=== PATIENT | male | born 1995 | race African-American/Black ===

== ENCOUNTER 2025-02-04 08:25 | Outpatient (AMB) | payer OTHER, SELFPAY ==
--- NOTE | 2025-02-04 08:34 | A.OFFPC_ITS ---
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 Intake Note: patient here for new patient visit Button Inspector Required: No Allergies No Known Allergies Allergy (Verified 02/04/25 09:07) Medication List - Last Reconciled 02/04/25 by Gilma Mock CNP albuterol sulfate 90 mcg/actuation 2 puffs inhalation Q4-6H PRN Tobacco use date assessed: 02/04/25 Dental Screening Dental Screen Date: 02/04/25 Did you have a dental visit in the last 12 months?: Yes Did you have a dental problem in the last 6 months where you did not have access to dental care?: No Was dental information given to patient?: Patient has dentist HPI HPI Comments History of Present Illness Details 29-year-old male presents to establish c are. Prior PCP? - [facility] in [facility] Last office visit/CPE/labs - About a year and half ago Acute issue(s) - Asthma; diagnosed during covid-19 prev alence. Unsure if he had covid. Uses albuterol inhaler - Reports difficulty difficulty falling asleep but able to maintain sleep; he wakes up restless. His notes he snores heavily; he has never had a sleep study or diagnosed with sleep apnea Past Medical History - Asthma, eczema, myopia, astigmatism tristan th eyes Surgical History - [place] teeth extraction Family History - Dad: Alcohol abuse, substance abuse - Mom: Substance abuse Social History - Nonsmoker. Does not vape. Does not dri nk alcohol. Denies recreational drug use - Has been making healthy dietary choice s. Exercises routinely. Reports difficulty difficulty falling asleep but able to maintain sleep; he wakes up restless. His notes he snores heavily; he has never had a sleep study or diagnosed with sleep apnea Health maintenance - Last eye exam was in 08/2024 at [facility] - Last dental visit was in 08/2024 - Unsure of last tetanus vaccine. He noy l review his immunization record and inform his PCP; will update as needed - He notes that he is up-to-date on the flu vaccine 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 1. Little interest or pleasure in doing things: not at all 2. Feeling down, depressed, or hopeless: several days 3. Trouble falling or staying asleep, or sleeping too much: several days 4. Feeling tired or having little energy: several days 5. Poor appetite or overeating: not at all 6. Feeling bad about yourself - or that you are a failure or have let yourself or your family down: not at all 7. Trouble concentrating on things, such as reading the newspaper or watching television: not at all 8. Moving or speaking so slowly that other people could have noticed. Or the opposite - being so fidgety or restless that you have been moving around a lot more than usual: not at all 9. Thoughts that you would be better off or of hurting yourself in some way: not at all Total score: 3 Depression Screening Interpretation: Negative Depression Screening Done: Yes 80827 - PHQ-9 Billing: Yes Source: Developed by Drs. Vivek Mccall, Smiley Steinberg, Loc Livingston and colleagues, with an educational dillon from [employer]. Thrive Questionnaire Date Thrive assessed: 02/04/25 I am a: Patient What is your living situation today?: I have a steady place to live Within the past 12 months, did the food you bought not last and you didn't have the money to get more?: Often true Within the past 12 months, did you worry whether your food would run out before you got money to buy more?: Never true Do you have trouble paying for medicines?: No Do you have trouble getting transportation to medical appointments?: No Do you have trouble paying your heating and electricity bill?: No Do you have trouble taking care of your child, family member or friend?: No Do you have trouble with day-to-day activities such as bathing, preparing meals, shopping, managing finances, etc.?: No Are you currently unemployed and looking for a job?: No Are you interested in more education?: Yes Please select the resources that you would like help with: None Currently or been in a relationship where the following occur: I choose not to answer THRIVE Score: 1 AUDIT C Alcohol Use Questionnaire (AUDIT-C) 2. How many drinks containing alcohol do you have on a typical day when you are drinking?: 1 or 2 3. How often do you have six or more drinks on one occasion?: Never Total Score: 0 Score Reviewed/Action Taken: Yes CASSIE-7 AMB Questionnaire CASSIE-7 Date CASSIE - 7 assessed: 02/04/25 Feeling nervous, anxious, or on edge: 1 = Several days Not being able to stop or control worryin = Not at all Worrying too much about different things: 0 = Not at all Trouble relaxin = Several days Being so restless that it is hard to sit still: 0 = Not at all Becoming easily annoyed or irritable: 0 = Not at all Feeling afraid as if something awful might happen: 0 = Not at all Total CASSIE-7 score (0-4 normal; 5-9 mild; 10-14 moderate; 15-21 severe): 2 Source: Developed by Drs. Vivek Mccall, Smiley Steinberg, Loc Livingston and colleagues, with an educational dillon from [employer]. CASSIE-7 Assessment Billing CASSIE-7 Assessment Tool: CASSIE-7 Assessment 56516 ACT Questionnaire In the past 4 weeks, how much of the time did your asthma keep you from getting as much done at work, school or at home?: None of the time During the past 4 weeks, how often have you had shortness of breath?: 1-2 times a week During the past 4 weeks, how often did your asthma symptoms wake you up at night or earlier than usual in the morning?: Once or twice per week During the past 4 weeks, how often have you had to use your rescue inhaler or nebulizer medication?: 1-2 times a week How would you rate your asthma control during the past 4 weeks?: Completely controlled ACT Interpretation: Negative Score: 20 Review of Systems Const Details: Denies chills, Denies fatigue, Denies fever(s), Denies headache(s) and Denies weakness HEENT Denies change in vision, Denies dizziness, Denies headache(s), Denies hearing loss, Denies nasal congestion, Denies sinus pain, Denies sinus pressure and Denies sore throat Card Denies chest pain, Denies lightheadedness, Denies dyspnea and Denies other (palpitations) Resp Denies cough, Denies dyspnea and Denies wheezing GI Denies abdominal pain, Denies melena, Denies hematochezia, Denies change in bowel habits, Denies dyspepsia and Denies nausea Denies hematuria and Denies dysuria Musc Denies abnormal gait, Denies myalgias, Denies arthralgias, Denies numbness and Denies tingling Skin/Breast Denies rash, Denies unusual bruising and Denies wounds Neuro Denies abnormal gait, Denies dizziness, Denies headache(s), Denies memory loss, Denies numbness, Denies Sensory deficit (Neuro), Denies tingling and Denies weakness Psych Denies anxiety, Denies depression and Denies memory loss Endo Denies cold intolerance, Denies fatigue, Denies heat intolerance, Denies polydipsia and Denies polyuria Joon/Lymph Denies easy bleeding and Denies easy bruising Aller/Immun Denies wheezing Physical exam (Primary Care) Vital Signs: Last Vital Signs Temp 97.5 F 02/04/25 08:55 Pulse 61 02/04/25 08:55 Resp 16 02/04/25 08:55 BP 134/79 02/04/25 08:55 Pulse Ox 98 02/04/25 08:55 Oxygen Delivery Method Room Air 02/04/25 08:55 BMI result Body Mass Index 42.5 Tobacco/Smoking Status: Tobacco use Status Tobacco use date assessed 02/04/25 02/04/25 08:42 Patient Tobacco Use Status Never used Tobacco 02/04/25 08:58 e-Cigarette/Vaping Use Never Used 02/04/25 08:58 PHQ-9: PHQ-9 Score PHQ-9: Total score 3 02/04/25 09:20 Depression Screening Interpretation: Negative Thrive Assessment: Date of Thrive Assessment Date Thrive assessed 02/04/25 02/04/25 08:36 Currently or been in a relationship where the following occur: I choose not to answer Const Other: General: no acute distress, well developed, alert and awake Nutritional Appearance: well nourished Orientation/consciousness: patient oriented x3 [facility] Head: Yes normocephalic and Yes atraumatic Ears: hearing grossly normal bilaterally and TM's normal bilaterally General nose exam: Normal external nose present and Normal nares present Mouth: Normal oral and palatal mucosa present and moist mucous membranes Teeth and gingiva: dentition normal Throat: Yes oropharynx normal Eyes Pupils: Equal, round and reactive pupils present and Pupil accommodation reflex normal EOM: EOMs intact bilaterally Neck Neck: Yes normal visual inspection, Yes no lymphadenopathy and Yes trachea midline Thyroid: Thyroid normal Carotids: no bruits Lymphatic: no lymphadenopathy noted Chest Chest palpation & inspection: normal inspection of the chest Resp Effort & Inspection: normal respiratory effort Auscultation: clear to auscultation bilaterally Cardio Rate: regular rate Rhythm: regular rhythm Heart sounds: S1 normal heart sound present, S2 normal heart sound present, no gallops, no murmurs and no rubs Bruits: no abdominal aortic bruits and no carotid bruits GI Palpation (GI): No Abdominal aortic bruit present, Soft to palpation, nontender, No hepatosplenomegaly present and No Rebound tenderness present Auscultation: normal bowel sounds General: Yes no CVA tenderness Back/Spine/Pelvis Back: no CVA tenderness Cervical Spine: cervical ROM normal and No Cervical spine tenderness Thoracic/Lumbar Spine: thoraco-lumbar ROM normal, No pain with thoraco-lumbar ROM, No thoracic spinal tenderness and No lumbar spinal tenderness Skin General: warm and dry. Normal skin color. Normal skin turgor Lesions: no lesions Rashes: no rashes Trauma: no lacerations or abrasions Wounds: no wounds Nails: normal Neuro General: patient oriented x3, gait normal and CN's II-XI intact bilaterally Cranial nerves: Yes Equal, round and reactive pupils present Cognition (Neuro): normal cognition Gait exam (Neuro): Normal gait present Motor exam (neuro): 5/5 motor strength present throughout Sensory Exam: No Sensory deficit (Neuro) Deep tendon reflexes (DTR's): Right patellar reflex intensity grade: 2+ and Left patellar reflex intensity grade: 2+ Extrem General: Yes normal to inspection, No edema and No calf tenderness Psych Appearance: grossly normal Affect: normal affect Attitude: cooperative Thought process: Normal thought process present Coding Level of Care Code New Pt Level 3 (49585) New Pt Prev Care 18-39yr(30536 Diagnoses Normal physical examination, routine Z00.00 Asthma J45.909 Sleep disturbance G47.9 Snoring R06.83 Laboratory tests ordered as part of a complete physical exam (CPE) Z00.00 Additional Codes CASSIE-7 Assessment Billing - CASSIE-7 Assessment Tool: CASSIE-7 Assessment 71910 ([id number]) PHQ-9 - 97394 - PHQ-9 Billing: Yes ([id number]) Asthma Control Questionnaire - ACT Interpretation: Negative ([id number]) Assessment & Plan Assessment & Plan (1) Normal physical examination, routine: Code(s): Z00.00 - Encounter for general adult medical examination without abnormal findings Category: Medical Plan: No significant functional limitation noted. Healthy diet and routine exercise encouraged. Raised perform lab work and follow-up in 2-3 weeks for telehealth visit for labs review. Return sooner with symptoms or concerns. Verbalized understanding and agreed with treatment plan. (2) Asthma: Code(s): J45.909 - Unspecified asthma, uncomplicated Category: Medical Plan: ACT score is 20, well controlled asthma. Albuterol inhaler refilled advised to use as prescribed. Follow-up with symptoms or concerns. Verbalized understanding and agreed with the treatment plan. (3) Sleep disturbance: Code(s): G47.9 - Sleep disorder, unspecified Category: Medical Plan: He has difficulty difficulty falling asleep but able to maintain sleep; he wakes up restless. His notes he snores heavily; he has never had a sleep study or diagnosed with sleep apnea. Instructed on sleep hygiene. Referred to [facility] for sleep study. (4) Snoring: Code(s): R06.83 - Snoring Category: Medical Plan: Plan as above. (5) Laboratory tests ordered as part of a complete physical exam (CPE): Code(s): Z00.00 - Encounter for general adult medical examination without abnormal findings Category: Medical Plan: Fasting labs ordered as part of a complete physical exam. Advised to fast for at least 10 hours before getting labs drawn. May drink water Verbalized understanding and agreed with treatment plan. Orders: Orders Comprehensive [place]. Panel Fast Today Z00.00 - Encounter for general adult medical examination without abnormal findings Lipid Panel Today Z00.00 - Encounter for general adult medical examination without abnormal findings TSH reflex Free T4 Today Z00.00 - Encounter for general adult medical examination without abnormal findings Vitamin D 25-OH Total Today Z00.00 - Encounter for general adult medical examination without abnormal findings Complete Blood Count Auto Diff Today Z00.00 - Encounter for general adult medical examination without abnormal findings Microalbumin, Random (w Creat) Today Z00.00 - Encounter for general adult medical examination without abnormal findings UA CC w/rflx Micro + Cult Today Z00.00 - Encounter for general adult medical examination without abnormal findings Referrals Sleep Medicine Referral G47.9 - Sleep disorder, unspecified, R06.83 - Snoring Medications: New albuterol sulfate 90 mcg/actuation 2 puffs inhalation Q4-6H PRN 8.5 grams 4RF shortness of breath or wheezing
[2025-02-04 08:55] VITALS: BP 134/79; PULSE 61; RESP 16; TEMP 36.4; O2SAT 98; BMI 42.5
== END 2025-02-04 09:27 | disposition home or self-care (01) ==
LOC: HO.HMCFM 08:26
PROVIDERS: PCP Nurse Practitioner Family; Visit Provider Nurse Practitioner Family
DX: Z00.00 Encounter for general adult medical examination without abnormal findings (principal); J45.909 Unspecified asthma, uncomplicated; G47.9 Sleep disorder, unspecified; R06.83 Snoring

== ENCOUNTER → 2025-02-04 08:25 | Outpatient (BNVA) | payer OTHER, SELFPAY | PROVIDERS: PCP Nurse Practitioner Family; Visit Provider Nurse Practitioner Family | DX: Z00.01 Encounter for general adult medical examination with abnormal findings (principal); J45.909 Unspecified asthma, uncomplicated; G47.9 Sleep disorder, unspecified; R06.83 Snoring | CPT/HCPCS: 96127; 96160; 99202 ==

== ENCOUNTER 2025-02-21 11:53 | Outpatient (REF) | payer OTHER, SELFPAY ==
[2025-02-21 13:51] LABS: MANUAL DIFF FLAG NO
[2025-02-21 13:53] LABS: Basophils Percent Auto 0.7 % (0-2); Eosinophils Percent Auto 0.7 % (0-4); Hematocrit 45.4 % (42.0-52.0); Hemoglobin 15.9 g/dl (14.0-18.0); Imm Gran Abs Auto 0.01 X10*3/uL (0.00-0.03); Imm Gran Pct Auto 0.2 % (0.0-0.4); Lymphocytes Absolute Auto 1.7 X10*3/uL (1.2-4.9); Lymphocytes Percent Auto 35.9 % (20-40); Mean Corpuscular Hemoglobin 31.1 pg (27.0-33.0); Mean Corpuscular Volume 88.7 fL (80.0-98.0); Mean Platelet Volume 11.4 fL (9.4-12.4); Monocytes Absolute Auto 0.3 X10*3/uL (0.1-1.2); Monocytes Percent Auto 7.2 % (2-11); Neutrophils Absolute Auto 2.5 x10*3/uL (2.0-8.3); Neutrophils Percent Auto 55.3 % (45-73); Platelet Count 188 X10*3/uL (160-400); Red Blood Count 5.12 X10*6/uL (4.60-5.80); Red Cell Distribution Width 11.8 % (11.0-16.0); White Blood Count 4.6 X10*3/uL (4.8-10.8)
[2025-02-21 14:24] LABS: Alanine Aminotransferase 37 U/L (0-40); Albumin Level 4.4 g/dL (3.5-5.0); Alkaline Phosphatase 46 U/L (39-117); Anion Gap 11 (12-20); Aspartate Amino Transferase 28 U/L (5-37); Bilirubin Total 0.5 mg/dL (0.0-1.0); Blood Urea Nitrogen 18 mg/dL (9-16); Carbon Dioxide 25 mmol/L (22-29); Chloride 105 mmol/L (96-108); Cholesterol 183 mg/dL (<200); Estimated Glomerular Filt Rate > 60; Glucose Fasting 110 mg/dL (60-99); HDL Cholesterol 53 mg/dL (>40); LDL Cholesterol Calculated 116 mg/dL (<100); Potassium 3.8 mmol/L (3.3-5.1); Sodium 137 mmol/L (135-145); Total Protein 7.9 g/dL (6.5-8.0); Triglycerides 72 mg/dL (<150)
[2025-02-21 14:30] LABS: TSH reflex Free T4 0.99 uIU/mL (0.32-4.0); Vitamin D 25-OH Total 38.4 ng/mL (>30)
== END 2025-02-21 11:54 | disposition home or self-care (01) ==
LOC: HO.HMGCLDS 11:53
PROVIDERS: PCP Nurse Practitioner Family; Visit Provider Nurse Practitioner Family
DX: Z00.00 Encounter for general adult medical examination without abnormal findings (principal); Z13.220 Encounter for screening for lipoid disorders; Z13.29 Encounter for screening for other suspected endocrine disorder; Z13.228 Encounter for screening for other metabolic disorders
CPT/HCPCS: 36415; 80053; 80061; 82306; 84443; 85025

== ENCOUNTER 2025-02-21 18:35 | Outpatient (REF) | payer OTHER, SELFPAY ==
[2025-02-22 10:24] LABS: Appearance Urine Clear; Color Urine Yellow; Glucose Urine UA Negative (Negative); Leukocyte Esterase Urine Negative (Negative); Nitrite Urine Negative (Negative); PH 5.5 (5.0-9.0); Specific Gravity - Urine 1.015 (1.005-1.025); Urine Blood Negative (Negative); Urine Ketones Negative (Negative); Urine Protein Negative (Neg-Trace)
[2025-02-22 11:26] LABS: Microalbum/Creatinine Ratio Ur 6.7 ug/mg cr (<30)
== END 2025-02-21 18:36 | disposition home or self-care (01) ==
LOC: HO.HMGCLNP 18:35
PROVIDERS: PCP Nurse Practitioner Family; Visit Provider Nurse Practitioner Family
DX: Z00.00 Encounter for general adult medical examination without abnormal findings (principal); Z13.9 Encounter for screening, unspecified
CPT/HCPCS: 81003; 82043; 82570

== ENCOUNTER 2025-02-22 14:03 | Outpatient (AMB) | payer OTHER, SELFPAY ==
--- NOTE | 2025-02-22 13:57 | MHC.PC.OV ---
Intake Visit Reasons: Telehealth 2-3 labs review Intake Note: patient here for follow up telehealth for lab review [place] Clerk Required: No Allergies No Known Allergies Allergy (Verified 02/22/25 13:57) Tobacco use date assessed: 02/22/25 Dental Screening Dental Screen Date: 02/22/25 Did you have a dental visit in the last 12 months?: Yes Did you have a dental problem in the last 6 months where you did not have access to dental care?: No Was dental information given to patient?: Patient has dentist HPI HPI Comments History of Present Illness Details 29-year-old male presents for telehealth visit for review of recent lab results. He offers no complaints and denies acute symptoms at this time. 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 Vivek Mccall, Smiley Steinberg, Loc Livingston and colleagues, with an educational dillon from [employer]. Review of Systems Const Details: Denies chills, Denies fatigue, Denies fever(s), Denies headache(s) and Denies weakness Cardiac Denies chest pain, Denies claudication, Denies leg edema, Denies lightheadedness, Denies palpitations, Denies dyspnea, Denies dyspnea on exertion, Denies orthopnea and Denies other (Loss of consciousness) Resp Denies cough, Denies excessive phlegm production, Denies dyspnea, Denies dyspnea on exertion, Denies snoring and Denies wheezing Physical exam (Primary Care) Tobacco/Smoking Status: Tobacco use Status Tobacco use date assessed 02/22/25 02/22/25 13:59 Patient Tobacco Use Status Never used Tobacco 02/22/25 13:59 e-Cigarette/Vaping Use Never Used 02/22/25 13:59 Thrive Assessment: Date of Thrive Assessment Date Thrive assessed 02/04/25 02/22/25 13:59 Const Other: She is alert and oriented x3. Telehealth Telehealth Telehealth Platform: Telephone Location of provider rendering services: practice address Location of patient: address on file Patient Identification confirmed using: Name, : Yes Telehealth method: voice only Patient verbally consented to treatment: Yes Patient verbally consented to billing insurance company: Yes Patient informed of any privacy concerns related to visit: Yes Coding Level of Care Code Tele Est Pt Level 3 (54909) Diagnoses Leukopenia D72.819 Elevated LDL cholesterol level E78.00 Time Spent (min) 10 Assessment & Plan Assessment & Plan (1) Leukopenia: Code(s): D72.819 - Decreased white blood cell count, unspecified Category: Medical Plan: Recent WBC slightly low, 4.6; equivocal. Will check vitamin B12 and folate levels. (2) Elevated LDL cholesterol level: Code(s): E78.00 - Pure hypercholesterolemia, unspecified Category: Medical Plan: Recent LDL is slightly elevated, 116. Advised to limit foods high in saturated fat and avoid foods high in trans fat. Routine exercise encouraged. Advised to fast for 10-12 hours, may drink water, and perform lipid panel blood work 2-3 days before next visit. Follow-up for telehealth visit in 3 months or sooner with symptoms or concerns. Verbalized understanding and agreed with the plan. Plan Encouraged to get urinalysis and urine microalbumin lab work done. Orders: Orders Vitamin B12 and Folate 02/22/25 D72.819 - Decreased white blood cell count, unspecified Lipid Panel 3 Months E78.00 - Pure hypercholesterolemia, unspecified
== END 2025-02-22 17:05 | disposition home or self-care (01) ==
LOC: HO.HMCFM 14:03
PROVIDERS: PCP Nurse Practitioner Family; Visit Provider Nurse Practitioner Family
DX: D72.819 Decreased white blood cell count, unspecified (principal); E78.00 Pure hypercholesterolemia, unspecified

== ENCOUNTER → 2025-02-22 14:03 | Outpatient (BNVA) | payer OTHER, SELFPAY | PROVIDERS: PCP Nurse Practitioner Family; Visit Provider Nurse Practitioner Family ==

== ENCOUNTER 2025-03-04 08:53 | Outpatient (AMB) | payer OTHER, SELFPAY ==
--- NOTE | 2025-03-04 08:57 | A.OFFVIS_ITS ---
Vital Signs 03/04/25 08:58 Height 5 ft 11 in Weight 296 lb 2 oz BMI 41.3 Pulse 83 Pulse Source Pulse Oximeter Pulse Oximetry (%) 98 Oxygen Delivery Method Room Air Intake Visit Reasons: INP-Sleep disorder Intake Note: Internal referral for sleep disturbance/Snoring Allergies No Known Allergies Allergy (Verified 03/04/25 09:03) HPI Comments Details: 29 year old male referred to for sleep evaluation by his PCP. He goes to bed at 10pm and wakes up at 7am yet feels fatigued daily. He has been snoring loudly, gasps for air and his complaints bc he stops breathing she nudges him to wake up and take a breath. He has a difficult time falling asleep, uses music to relax but it doesn't help. Wakes up very tired in the morning. He stays asleep all evening, has one to two bathroom breaks a night. He denies RLS. He does have nascimento splints and plantar fasciiitis bilaterally, he stretches his feet daily and uses a massage tool to alleviate the pain. He denies bruxism. He denies morning headaches. He drinks alot of water and exercises 3-5 x a week. He denies any family history. He denies smoking, edibles and MJ. 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 Const General: cooperative Nutritional Appearance: obese (BMI elevated however muscular physique.) Orientation/consciousness: patient oriented x3 HEENT Teeth and gingiva: other ([place] score of 3) Eyes Pupils: Equal, round and reactive pupils present Neck Neck: Yes full ROM Resp Effort & Inspection: normal respiratory effort and able to speak in complete sentences Neuro General: patient oriented x3 and moves all extremities Cranial nerves: Yes CN's II-XII intact bilaterally, Yes Facial sensation intact/muscles of mastication intact, Yes Equal, round and reactive pupils present, Yes Normal accommodation reflex present, Yes Bilaterally intact EOM present, Yes Normal facial strength present, Yes Midline tongue present, Yes Ability to bilaterally rotate head present and Yes Ability to bilaterally elevate shoulders present Gait exam (Neuro): Normal gait present Motor exam (neuro): 5/5 motor strength present throughout and Normal motor muscle tone present throughout Deep tendon reflexes (DTR's): Right triceps reflex intensity grade: 2+, Left triceps reflex intensity grade: 2+, Rt Biceps (C5, C6): 2+, Left biceps reflex intensity grade: 2+, Right brachioradialis reflex intensity grade: 2+, Left brachioradialis reflex intensity grade: 2+, Right patellar reflex intensity grade: 2+, Left patellar reflex intensity grade: 2+, Right ankle reflex intensity grade: 2+ and Left ankle reflex intensity grade: 2+ Coordination: [id number] test normal Psych Appearance: grossly normal Insight: Good insight present (Psych) Judgement: Good judgement present (Psych) Results Reviewed Results Reviewed: 01/31/2025 Vit D and TSH is normal. Random Glucose is high. Lipid pending. B12 and Folate has not resulted. Assessment & Plan Assessment & Plan (1) Loud snoring: Code(s): R06.83 - Snoring Category: Medical (2) Fatigue due to sleep pattern disturbance: Code(s): R53.83 - Other fatigue; G47.9 - Sleep disorder, unspecified Category: Medical Plan Fatigue HST Labs: B12 / Folate/ MMA/ Homocysteine / Iron panel an pending - Lipid panel? F/u in 3 months. Orders: Orders Vitamin B12 and Folate Today G47.9 - Sleep disorder, unspecified, R53.83 - Other fatigue Methylmalonic Acid Today G47.9 - Sleep disorder, unspecified, R53.83 - Other fatigue Homocysteine Today G47.9 - Sleep disorder, unspecified, R53.83 - Other fatigue IRON PROFILE Today G47.9 - Sleep disorder, unspecified, R53.83 - Other fatigue RT home sleep study Today G47.19 - Other hypersomnia Patient Instructions: Sleep Hygiene provided: set a scheduled bedtime and wake time to help regulate the circadian rhythm and balance the release of pituitary hormones. Sleep in a dark room, temperatures below 68 degrees, and no devices n bed. Limit caffeinated products 6 hours prior to bed, and limit fluids 2-4 hours prior to bed. Gentle night yoga, diffusing essential oils, and playing soft music can be relaxing. Will f/u with labs: Folate/ B12/ MMA /Homocysteine and Iron panel. Coding Level of Care Code Est Pt Level 4 (98827) Diagnoses Loud snoring R06.83 Fatigue due to sleep pattern disturbance R53.83; G47.9 Time Spent (min) 30 Sleep Questionnaire Difficulty falling asleep: Yes Difficulty staying asleep?: No Number of arousals: 2 Snoring: Yes Witnessed apneas: Yes Gasping arousals: Yes Nocturia: No GERD: No Vivid dreams: Yes Acting out dreams: Yes (falling but never hits the ground and wakes up.) Abnormal behavior in sleep: Yes (Sleep talks.) Abnormal movements in sleep: No Morning headaches: No Excessive daytime sleepiness: Yes Daytime naps: No Restless legs: No Hallucinations: No Sleep paralysis: No Drop attacks: No Sleep Study: No CPAP: No
[2025-03-04 08:58] VITALS: PULSE 83; O2SAT 98; BMI 41.3
== END 2025-03-04 09:47 | disposition home or self-care (01) ==
LOC: HO.HSMS 08:54
PROVIDERS: PCP Nurse Practitioner Family; Visit Provider Physician Assistant Medical
DX: R06.83 Snoring (principal); R53.83 Other fatigue; G47.9 Sleep disorder, unspecified
CPT/HCPCS: 99214

== ENCOUNTER → 2025-03-04 08:53 | Outpatient (BNVA) | payer OTHER, SELFPAY | PROVIDERS: PCP Nurse Practitioner Family; Visit Provider Physician Assistant Medical | DX: R06.83 Snoring (principal); R53.83 Other fatigue; G47.9 Sleep disorder, unspecified | CPT/HCPCS: 99212 ==

== ENCOUNTER → 2025-05-25 08:57 | Outpatient (REF) | payer OTHER, SELFPAY ==
[2025-05-25 10:01] LABS: Cholesterol 160 mg/dL (<200); HDL Cholesterol 42 mg/dL (>40); Triglycerides 65 mg/dL (<150)
[2025-05-25 10:43] LABS: Folate 9.6 ng/mL (> or = 4.0); Vitamin B12 953 pg/mL (200-900)
== END ==
LOC: HO.SL 08:57
PROVIDERS: PCP Nurse Practitioner Family; Visit Provider Physician Assistant Medical
DX: G47.19 Other hypersomnia (principal); G47.33 Obstructive sleep apnea (adult) (pediatric); E78.00 Pure hypercholesterolemia, unspecified; D72.819 Decreased white blood cell count, unspecified
CPT/HCPCS: 36415; 80061; 82607; 82746; 95806

== ENCOUNTER → 2025-05-25 09:10 | Outpatient (BNV) | payer OTHER, SELFPAY | PROVIDERS: PCP Nurse Practitioner Family; Visit Provider Psychiatry & Neurology Neurology | DX: G47.33 Obstructive sleep apnea (adult) (pediatric) (principal) | CPT/HCPCS: 95806 ==

== ENCOUNTER 2025-06-03 14:48 | Outpatient (AMB) | payer OTHER, SELFPAY ==
--- NOTE | 2025-06-03 14:45 | A.OFFPC_ITS ---
Intake Visit Reasons: 3 mos telehealth elevated LDL Intake Note: ptient here for 3 month telehealth follow up for elevated LDL Visualizer Required: No Allergies No Known Allergies Allergy (Verified 06/03/25 14:46) Tobacco use date assessed: 06/03/25 Dental Screening Dental Screen Date: 06/03/25 Did you have a dental visit in the last 12 months?: No Did you have a dental problem in the last 6 months where you did not have access to dental care?: No Was dental information given to patient?: Patient has dentist HPI HPI Comments History of Present Illness Details 29-year-old male presents for telehealth visit for review of recent lab results. He admits to making healthy dietary choices and exercising routinely. He offers no complaints and denies acute symptoms at this time. 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 Vivek Mccall, Smiley Steinberg, Loc Livingston and colleagues, with an educational dillon from [employer]. Review of Systems Const Details: Denies chills, Denies fatigue, Denies fever(s), Denies headache(s) and Denies weakness Cardiac Denies chest pain, Denies claudication, Denies leg edema, Denies lightheadedness, Denies palpitations, Denies dyspnea, Denies dyspnea on exertion, Denies orthopnea and Denies other (Loss of consciousness) Resp Denies cough, Denies excessive phlegm production, Denies dyspnea, Denies dyspnea on exertion, Denies snoring and Denies wheezing Physical exam (Primary Care) Tobacco/Smoking Status: Tobacco use Status Tobacco use date assessed 06/03/25 06/03/25 14:47 Patient Tobacco Use Status Never used Tobacco 06/03/25 14:47 e-Cigarette/Vaping Use Never Used 06/03/25 14:47 Thrive Assessment: Date of Thrive Assessment Date Thrive assessed 02/02/25 06/03/25 14:47 Const Other: Patient is alert and oriented x3 Telehealth Telehealth Telehealth Platform: Telephone Location of provider rendering services: practice address Location of patient: address on file Patient Identification confirmed using: Name, : Yes Telehealth method: voice only Patient verbally consented to treatment: Yes Patient verbally consented to billing insurance company: Yes Patient informed of any privacy concerns related to visit: Yes Coding Level of Care Code Tele Est Pt Level 3 (71445) Diagnoses Elevated LDL cholesterol level E78.00 Leukopenia D72.819 Time Spent (min) 10 Assessment & Plan Assessment & Plan (1) Elevated LDL cholesterol level: Code(s): E78.00 - Pure hypercholesterolemia, unspecified Category: Medical Plan: Recent LDL level is slightly elevated, 105, previous level was 116. Encouraged to limit foods high in saturated fat and avoid foods high in trans fat. Routine exercise encouraged. Follow-up for telehealth visit after 02/04/2026. Return sooner with symptoms or concerns. Verbalized understanding and agreed with the plan. (2) Leukopenia: Code(s): D72.819 - Decreased white blood cell count, unspecified Category: Medical Plan: Recent WBC is slightly low, 4.6. Recent vitamin B12 and folate levels are normal. Equivocal. Will monitor periodically. Verbalized understanding and agreed with the plan.
--- OUTSIDE RECORDS SUMMARY | 2025-06-03 14:49 | XMS_ITS | Continuity of Care Document ---
Author Name [facility] Organization [facility] Care Team Providers Care Typewriter Mechanic Name Role Phone [facility] Unavailable Unavailable Social History Combined list of available smoking, tobacco, and other social history from [facility] of Defense and [facility] facilities. Social History Type Response Date Comment Sourc e This section is an empty social history section. [facility]
== END 2025-06-03 15:06 | disposition home or self-care (01) ==
LOC: HO.HMCFM 14:48
PROVIDERS: PCP Nurse Practitioner Family; Visit Provider Nurse Practitioner Family
DX: E78.00 Pure hypercholesterolemia, unspecified (principal); D72.819 Decreased white blood cell count, unspecified

== ENCOUNTER 2025-06-07 10:52 | Outpatient (AMB) | payer OTHER, SELFPAY ==
--- NOTE | 2025-06-07 11:03 | MHC.OFFVIS ---
Vital Signs 06/07/25 11:04 Height 5 ft 11 in Weight 317 lb 8 oz BMI 44.3 BP 130/88 Blood Pressure Location Rt brachial Position Sitting Pulse 91 Pulse Source Pulse Oximeter Pulse Oximetry (%) 95 Oxygen Delivery Method Room Air Intake Visit Reasons: 3 mo follow up Intake Note: Patient presents follow up Sleep. Labs in chart HST done 05/25. Accompanied by: Self / Same As Patient Allergies fish derived (fish) Allergy (Unknown, Verified 06/07/25 11:10) Swelling HPI Comments Details: 29 year old male referred to for sleep evaluation by his PCP. April 2025 HST c/w ESS 12, hyper-somnia and chronic fatigue. 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 He goes to bed at 10pm and wakes up at 7am yet feels fatigued daily. He has been snoring loudly, gasps for air and his complaints bc he stops breathing she nudges him to wake up and take a breath. He has no problem falling asleep but gets up at 3-4am, and is able to fall asleep. Wakes up very tired in the morning. He stays asleep all evening, has one to two bathroom breaks a night. Memory and mood are stable. He lacks focus to attention, must be in a quiet environment to read without distractions. He does not like to multi-task, he must hyper-focus on goal oriented tasks. He has nascimento splints and plantar fasciitis bilaterally, he stretches the tibia uses a foam roller for his feet daily post workout uses a massage tool to alleviate the pain. He denies RLS. He denies bruxism. He denies morning headaches. He drinks water and exercises 3-5 x a week as he takes protein and creatinine for a thermo-genic work out. FH + for 50s NM. He denies alcohol use, smoking, edibles and MJ. 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 Const General: cooperative Nutritional Appearance: obese (BMI elevated however muscular physique.) Orientation/consciousness: patient oriented x3 HEENT Teeth and gingiva: other ([place] score of 3) Eyes Pupils: Equal, round and reactive pupils present Neck Neck: Yes full ROM Resp Effort & Inspection: normal respiratory effort and able to speak in complete sentences Neuro General: patient oriented x3 and moves all extremities Cranial nerves: Yes Facial sensation intact/muscles of mastication intact, Yes Equal, round and reactive pupils present, Yes Bilaterally intact EOM present, Yes Normal facial strength present, Yes Midline tongue present, Yes Ability to bilaterally rotate head present and Yes Ability to bilaterally elevate shoulders present Gait exam (Neuro): Normal gait present Motor exam (neuro): 5/5 motor strength present throughout and Normal motor muscle tone present throughout Psych Appearance: grossly normal Insight: Good insight present (Psych) Judgement: Good judgement present (Psych) Results Reviewed Results Reviewed: ESS is 12-hypersomnia Assessment & Plan Assessment & Plan (1) Fatigue due to sleep pattern disturbance: Code(s): R53.83 - Other fatigue; G47.9 - Sleep disorder, unspecified Category: Medical (2) Loud snoring: Code(s): R06.83 - Snoring Category: Medical Plan Fatigue HST is pending Louud Snoring taping of mouth or strips for nose can be used. ESS 12 hyper-somnia Labs: normal F/u in 3 months. Patient Instructions: Sleep Hygiene provided: set a scheduled bedtime and wake time to help regulate the circadian rhythm and balance the release of pituitary hormones. Sleep in a dark room, temperatures below 68 degrees, and no devices n bed. Limit caffeinated products 6 hours prior to bed, and limit fluids 2-4 hours prior to bed. Gentle night yoga, diffusing essential oils, and playing soft music can be relaxing. Coding Level of Care Code Est Pt Level 4 (91554) Diagnoses Fatigue due to sleep pattern disturbance R53.83; G47.9 Loud snoring R06.83 Time Spent (min) 20 Comment HST pending results, hypersomnia ESS 12 [place] Sleepiness Scale Questions Sitting and reading: high chance of dozing Watching TV: slight chance of dozing Sitting inactive in a theater, movie etc.: moderate chance of dozing As a passenger in a car for an hour without break: slight chance of dozing Lying down in the afternoon when circumstances permit: high chance of dozing Sitting and talking to someone: would never doze Sitting quietly after lunch without alcohol: moderate chance of dozing In a car, while stopped for a few minutes in the traffic: would never doze ESS < 10: normal, ESS > 12: pathologic: 12
[2025-06-07 11:04] VITALS: BP 130/88; PULSE 91; O2SAT 95; BMI 44.3
== END 2025-06-07 11:42 | disposition home or self-care (01) ==
LOC: HO.HSMS 10:52
PROVIDERS: PCP Nurse Practitioner Family; Visit Provider Physician Assistant Medical
DX: R53.83 Other fatigue (principal); G47.9 Sleep disorder, unspecified; R06.83 Snoring
CPT/HCPCS: 99214

== ENCOUNTER → 2025-06-07 10:52 | Outpatient (BNVA) | payer OTHER, SELFPAY | PROVIDERS: PCP Nurse Practitioner Family; Visit Provider Physician Assistant Medical | DX: R53.83 Other fatigue (principal); G47.9 Sleep disorder, unspecified; R06.83 Snoring | CPT/HCPCS: 99212 ==

== ENCOUNTER 2025-09-07 12:56 | Outpatient (AMB) | payer OTHER, SELFPAY ==
[2025-09-07 12:57] VITALS: BP 120/78; PULSE 78; O2SAT 97; BMI 42.0
--- NOTE | 2025-09-07 12:57 | MHC.OFFVIS ---
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 April 2025 HST c/w AHI of 6 and oxygen desaturation to 76%. [facility] Compliance Report reviewed 07/2025- 08/2025 Total avg use is 21/44 days and >4hours is 15 days Avg use is 2 hours and 18min press [id number] and Leaks 8.8 AHI is 0.9 He washes the mask, rinses hoses, changes filters and fills reservoir with water. He feels better when using his cpap. He is no longer fatigued, and now has refreshed sleep. He notices a significant difference at work and is more focused when completing tasks. He wakes up earlier now about 5:30am to go to the gym as he likes to lift weight as a hobby. He is no longer snoring and states the hose for the mask has a 360 degree circumference so it makes it very easy to sleep in any position he desires, though we discussed side sleeping is best. He can stay asleep throughout the evening. He says his memory, mood and diet are stable. He must still be in a quiet environment to read without distractions due to the nature of his job. He does not like to multi-task, he must hyper-focus on goals. When he has nascimento splints, he uses a foam roller to stretch. He uses arch support bilaterally for plantar fasciitis. His post workout routine with a massage tool and magnesium 400mg po daily at bedtime alleviates the sore achiness of jumpy cramping leg muscles.He denies RLS symptoms, and paresthesias. He drinks plenty of water and exercises 3-5 x a week as he takes protein and creatinine for a thermo-genic work out, he knows how to bulk up for competitions and can shed pounds easily with cardio centered exercises, he has lost 16lbs in 3 months. He has a family history + for MIs, Dad and wants to stay in the best health possible. 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 Const General: cooperative Nutritional Appearance: obese (BMI elevated however muscular physique.) Orientation/consciousness: patient oriented x3 HEENT Teeth and gingiva: other ([place] score of 3) Eyes Pupils: Equal, round and reactive pupils present Neck Neck: Yes full ROM Resp Effort & Inspection: normal respiratory effort and able to speak in complete sentences Neuro General: patient oriented x3 and moves all extremities Cranial nerves: Yes Facial sensation intact/muscles of mastication intact, Yes Equal, round and reactive pupils present, Yes Bilaterally intact EOM present, Yes Normal facial strength present, Yes Midline tongue present, Yes Ability to bilaterally rotate head present and Yes Ability to bilaterally elevate shoulders present Gait exam (Neuro): Normal gait present Motor exam (neuro): 5/5 motor strength present throughout and Normal motor muscle tone present throughout Psych Appearance: grossly normal Affect: normal affect Attitude: cooperative Thought process: Normal thought process present Insight: Good insight present (Psych) Judgement: Good judgement present (Psych) Results Reviewed Results Reviewed: [facility] Compliance Report reviewed 07/2025- 08/2025 Total avg use is 21/44 days and >4hours is 15 days Avg use is 2 hours and 18min press [id number] and Leaks 8.8 AHI is 0.9 Assessment & Plan Assessment & Plan (1) Fatigue due to sleep pattern disturbance: Code(s): R53.83 - Other fatigue; G47.9 - Sleep disorder, unspecified Category: Medical (2) Loud snoring: Code(s): R06.83 - Snoring Category: Medical Plan Mild ELAN on cpap and pt experiencing refreshed sleep, though we discussed compliance requirements for optimizing health outcomes, he was having some trouble with his work schedule and mask initially, now plans to use the cpap daily as he recognizes the need to improve oxygenation at night. ESS 12 hypersomnia is now improved, no longer is falling asleep while driving. Labs reviewed with pt will start him on Vitamin D, check Ferritin B12, MMA, Homocystein, His B12 is elevated and he does not take a supplement. F/u in 3 months. Patient Instructions: Sleep Hygiene provided: set a scheduled bedtime and wake time to help regulate the circadian rhythm and balance the release of pituitary hormones. Sleep in a dark room, temperatures below 68 degrees, and no devices n bed. Limit caffeinated products 6 hours prior to bed, and limit fluids 2-4 hours prior to bed. Gentle night yoga, diffusing essential oils, and playing soft music can be relaxing. Coding Level of Care Code Est Pt Level 4 (40707) Diagnoses Fatigue due to sleep pattern disturbance R53.83; G47.9 Loud snoring R06.83
== END 2025-09-07 13:33 | disposition home or self-care (01) ==
LOC: HO.HSMC 12:57
PROVIDERS: PCP Nurse Practitioner Family; Visit Provider Physician Assistant Medical
DX: R53.83 Other fatigue (principal); G47.9 Sleep disorder, unspecified; R06.83 Snoring
CPT/HCPCS: 99214

== ENCOUNTER → 2025-09-07 12:56 | Outpatient (BNVA) | payer OTHER, SELFPAY | PROVIDERS: PCP Nurse Practitioner Family; Visit Provider Physician Assistant Medical | DX: R06.83 Snoring (principal); G47.9 Sleep disorder, unspecified; R53.83 Other fatigue | CPT/HCPCS: 99212 ==